=== PATIENT | female | born 1985 | race Caucasian/White ===

== ENCOUNTER 2017-03-18 00:12 | Emergency (ER) | payer OTHER ==
[~2017-03-18] VITALS: Ht 177.8 cm; Wt 104.3 kg
[2017-03-18 01:18] VITALS: BP 115/73
== END 2017-03-18 01:19 | disposition home or self-care (01) ==
LOC: EDBD 00:12 → ER 00:12
DX: F41.9 Anxiety disorder, unspecified (principal)